=== PATIENT | male | born 1955 | race Caucasian/White ===

== ENCOUNTER 2017-12-10 07:26 | Emergency (ER) | payer OTHER ==
[~2017-12-10] VITALS: Ht 177.8 cm; Wt 81.8 kg
[~2017-12-10 07:26] MED LIST: ATENOLOL; QUET50TA PO
[2017-12-10] MEDS ORDERED: ATEN25TA PO (07:35)
[2017-12-10 08:11] VITALS: BP 133/82
[2017-12-10 08:30] LABS: APPEARANCE,URINE TURBID (CLEAR); BILIRUBIN,URINE NEGATIVE (NEGATIVE); GLUCOSE, URINE (UA) NEGATIVE (NEGATIVE); KETONES,URINE NEGATIVE (NEGATIVE); LEUKOCYTE ESTERASE ,URINE MODERATE (NEGATIVE); NITRATE,URINE NEGATIVE (NEGATIVE); OCCULT BLOOD,URINE LARGE (NEGATIVE); PH,URINE 6.5 (5.0-8.0); PROTEIN,URINE POS 1+ (NEGATIVE); UROBILINOGEN,URINE 0.2 mg/dL (<=1.0)
[2017-12-10 08:47] LABS: BACTERIA,URINE Few /HPF (None Seen); RBC,URINE >100 /HPF (0-2)
[2017-12-10] MEDS ORDERED: CefTRIAXone SODIUM 1 GM/VIAL IM ONE (09:15)
[2017-12-10] MEDS ORDERED: AZITHROMYCIN 250 MG TABLET PO ONE (09:15)
[2017-12-10] MEDS ORDERED: LIDOCAINE HCL/PF 1% 2 ML VIAL IM ONE ×2 (09:30)
== END 2017-12-10 09:57 | disposition home or self-care (01) ==
LOC: EMS 07:27
DX: N34.2 Other urethritis (principal); I10 Essential (primary) hypertension; F11.90 Opioid use, unspecified, uncomplicated; F14.90 Cocaine use, unspecified, uncomplicated; F17.210 Nicotine dependence, cigarettes, uncomplicated
CPT/HCPCS: 81001; 87086; 87491; 87591; 96372; 99284; J0696; J3490